=== PATIENT | male | born 1990 | race Asian ===

== ENCOUNTER 2024-02-28 18:11 | Emergency (ER) | payer BC ==
[~2024-02-28] VITALS: Ht 172.7 cm; Wt 90.0 kg
[2024-02-28 18:17] VITALS: TEMP 98.4
[2024-02-28 18:30] LABS: COVID AG,FIA SOURCE NASAL SWAB
[2024-02-28 18:50] LABS: SARS-COV2 (COVID) ANTIGEN,FIA Negative (Negative)
[2024-02-28 18:52] LABS: INFLUENZA TYPE A NEGATIVE FOR TYPE A (NEGATIVE); INFLUENZA TYPE B NEGATIVE FOR TYPE B (NEGATIVE)
[2024-02-28] MEDS ORDERED: BENZ-227 PO (22:41)
[2024-02-28] MEDS ORDERED: ALBU18HF12 IH (22:42)
[2024-02-28 22:45] VITALS: BP 120/55; PULSE 80; RESP 18; O2SAT 98
== END 2024-02-28 22:55 | disposition home or self-care (01) ==
LOC: EDBD 18:11 → EMS 18:11
DX: J06.9 Acute upper respiratory infection, unspecified (principal); Z20.822 Contact with and (suspected) exposure to COVID-19
CPT/HCPCS: 87804; 99283